=== PATIENT | female | born 1990 | race Caucasian/White ===

== ENCOUNTER 2019-01-01 08:19 | Day surgery (SDC) | payer MEDICAID ==
[~2019-01-01] VITALS: Ht 175.3 cm; Wt 177.3 kg
[~2019-01-01 08:19] MED LIST: SODIUM CHLORIDE 0.9% 1,000 ML IV ONE
[2019-01-01] MEDS ORDERED: OMEP20 PO (09:38)
[2019-01-01] MEDS ORDERED: ESCI10TA PO (09:38)
[2019-01-01] MEDS ORDERED: LEVO1TAB PO (09:38)
[2019-01-01] MEDS ORDERED: BUPR-93 PO (09:38)
[2019-01-01] MEDS ORDERED: LIDOCAINE/PF 2% 5 ML VIAL INJ ONE (12:00)
[2019-01-01] MEDS ORDERED: PROPOFOL 1% 20 ML VIAL IVP ONE (12:00)
== END 2019-01-01 10:50 | disposition home or self-care (01) ==
LOC: SURGERY 08:19
PROVIDERS: ATTEND Internal Medicine Gastroenterology
DX: K29.50 Unspecified chronic gastritis without bleeding (principal); K63.89 Other specified diseases of intestine; Z87.891 Personal history of nicotine dependence; Z79.899 Other long term (current) drug therapy; Z98.890 Other specified postprocedural states
CPT/HCPCS: 44361; 84703; 88305; 88312; 88313; C1769; J2704; J3490; J7030